=== PATIENT | female | born 1965 | race Caucasian/White ===

== ENCOUNTER 2018-10-16 11:45 | Emergency (ER) | payer SELFPAY ==
[2018-10-16 11:56] VITALS: BP 178/99; PULSE 116; RESP 16; TEMP 36.8; O2SAT 98
--- NOTE | 2018-10-16 12:13 | ED.GENADUL_ITS ---
Discharge Plan Disposition Patient Disposition: HOME Condition: Good Discharge Details Chief Complaint: GenMedical Clinical Impression: Mild HTN Primary Care Provider: Miguelina Quijano ED Provider: Eyad Forbes Home Meds and New Rx's Prescriptions: New lisinopril 10 mg tablet 10 mg PO DAILY Qty: 60 RF: 0 Discharge Instructions Instructions: Hypertension (ED) Additional Instructions: Please take the medication as directed. Remember this is a temporizing medication. It is very important that you do your very best to lose weight, stop smoking and decrease in your salt intake. If you notice any worsening of your symptoms, or any new symptoms such as swelling of your lips, chronic dry cough, vomiting, diarrhea, fever, chills, shortness of breath, chest pain, numbn ess, weakness, or fainting , please return immediately to the emergency department for reevaluation. Please follow up with your primary care provider as soon as possible for reassessment and reevaluation. As always, it was a pleasure participating in your medical care today. Referrals: Miguelina Quijano, SLEEP TECHNICIAN [Primary Care Provider] - Medical Decision Making This is a pleasant 53-year-old female who presents for evaluation of hypertension. She has been measuring her blood pressure at home and is noticed it being elevated slowly for the last 3 weeks. She has an appointment with her PCP but it is not a month, so she came in for assessment. She denies any other complaints whatsoever of chest pain, shortness of breath, headache, vision changes, numbness tingling or weakness. Physical exam is inconsistent with stroke. No evidence of significant neurologic cardiac abnormalities secondary to blood pressure. Signs and symptoms appear clinically consistent with hypertension, and inconsistent with hypertensive emergency. I had a long 15 to 20-minute discussion with the patient regarding the importance of exercise, decrease on salt intake, regular exercise, and decrease in smoking. I discussed how blood pressure medication is a temporizing mechanism, and that lifestyle modifications are the most important thing. We will prescribe lisinopril 10 mg daily as an initial antihypertensive agent, do recommend continue close follow- up with her PCP. Discussed red flags for which to return. I have extensively reviewed the treatment plan and discharge instructions with the patient. I have addressed all patient concerns at this time. The patient was made aware of what symptoms to monitor for that would warrant a return to the emergency department. Discussed the plan with the patient, they demonstrate verbal understanding and agreement with our assessment and plan at this time. HPI General Date/Time Provider Initiated Documentation: 10/16/18 11:53 . HPI Narrative: This is a 53-year-old female with no significant past medical history who presents for evaluation of hypertension. Patient states that over the last 3 weeks she has noticed that her blood pressure has slightly consistently been elevated in the 150s to 170s, she is scheduled appointment with her primary care provider but cannot follow-up for a month. She felt that it was best to come here then for further evaluation. She denies any complaints of headache, chest pain, syncope, tearing sensation in her chest, history of adrenal tumors, or other complaints. She states that her only reason for coming in today with several blood pressure assessed. She does state that she feels very nervous because of her elevated blood pressure and what this might entail. She denies any other complaints modifying factors at this time. She does admit to 30 pound weight gain over the last year, regular tobacco use, and a diet heavy in salt. Related Data Home Medications Medication Instructions Recorded Confirmed lisinopril 10 mg PO DAILY #60 tab 10/16/18 Previous Rx's Medication Instructions Recorded lisinopril 10 mg PO DAILY #60 tab 10/16/18 Allergies Allergy/AdvReac Type Severity Reaction Status Date / Time No Known Allergies Allergy Unverified 10/16/18 11:59 General Stated Complaint: GenMedical ANUPAMA: 3 Review of Systems Review of Systems All systems reviewed & are unremarkable except as noted in HPI and below PFSH Social History Smoking/Tobacco Use Status: Current every day Alcohol Intake: never Substance use type: does not use Exam Narrative Exam Narrative: 1.Const: Well-nourished, Well-developed, appearing stated age 2.Eyes: PERRL, no conjunctival injection, and symmetrical lids. 3.ENT: Atraumatic external nose and ears. Moist MM. Neck: Symmetric, trachea midline, No thyromegaly. 4.CVS: +S1/S2, No murmurs or gallops. Peripheral pulses 2+ and equal in all extremities. Brisk capillary refill in all extremities. 5.RESP: Unlabored respiratory effort. Clear to auscultation bilaterally. No wheezes rales or rhonchi 6.GI: Soft, Nontender/Nondistended, No hepatosplenomegaly. No guarding or rebound. 7.MSK: Normocephalic/Atraumatic, Extremities w/o deformity or ttp No cyanosis or clubbing, Normal movement of all extremities 8.Skin: Warm, Dry. No rashes or lesions. 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 Sensation grossly intact, no focal neurologic deficits. 10.Psych: (AAO) x3. Appropriate mood and affect Course Vital Signs Temperature 36.8 C 10/16/18 11:56 Pulse 116 H 10/16/18 11:56 Respiratory Rate 16 10/16/18 11:56 Blood Pressure 178/99 H 10/16/18 11:56 Pulse Oximetry 98 10/16/18 11:56 Temperature 36.8 C 10/16/18 11:56 Temperature Source Skin 10/16/18 11:56 Pulse 116 H 10/16/18 11:56 Respiratory Rate 16 10/16/18 11:56 Respiratory Effort Non-Labored 10/16/18 11:56 Blood Pressure 178/99 H 10/16/18 11:56 Blood Pressure Position Sitting 10/16/18 11:56 Pulse Oximetry 98 10/16/18 11:56 Oxygen Delivery Method Room Air 10/16/18 11:56 Oxygen Flow Rate 0 10/16/18 11:56 Pain Level 0 10/16/18 11:56
[2018-10-16 12:26] VITALS: RESP 16
== END 2018-10-16 12:19 | disposition home or self-care (01) ==
LOC: ER 12:22
PROVIDERS: Emergency Provider Student in an Organized Health Care Education/Training Program; PCP Nurse Practitioner Family
DX: I10 Essential (primary) hypertension (principal); F17.210 Nicotine dependence, cigarettes, uncomplicated
CPT/HCPCS: 99283

== ENCOUNTER 2019-03-05 00:37 | Outpatient (CLI) | payer MEDICAID, SELFPAY ==
--- NOTE | 2019-03-05 12:16 | DI.MAMMO_ITS ---
EXAM: MAMMO SCREENING CLINICAL HISTORY: SCREENING Z12.39 TECHNIQUE: Mammograms were interpreted according to the usual protocol including computer analysis w [employer] CAD system, tomosynthesis and C-view imaging. FINDINGS: The breasts are of moderate density with fairly symmetrical distribution of fibroglandular tissue. Th ere is a fairly well-circumscribed mass projected in the central medial portion left breast on CC vie ws, this was not present on most recent previous mammogram of November 2010. No additional mass seen. No clumped microcalcification identified in either breast. IMPRESSION: Incompletely visualized, probably well-circumscribed 10 millimeter breast mass, likely new since 2010 . CC and MLO spot-compression views and breast ultrasound recommended for further evaluation. Categor y 0. Breast density, category B. BI-RADS Cat 0 - Assessment Incomplete: Need additional imaging evaluation. Breast Density - Category B - Scattered areas of fibroglandular density.
== END 2019-03-05 00:57 ==
PROVIDERS: PCP Nurse Practitioner Family; Visit Provider Nurse Practitioner Family
DX: Z12.31 Encounter for screening mammogram for malignant neoplasm of breast (principal); R92.8 Other abnormal and inconclusive findings on diagnostic imaging of breast; N63.20 Unspecified lump in the left breast, unspecified quadrant
CPT/HCPCS: 77063; 77067

== ENCOUNTER 2019-03-07 01:36 | Outpatient (CLI) | payer MEDICAID, SELFPAY ==
--- NOTE | 2019-03-07 10:17 | DI.MAMMO_ITS ---
EXAM: MG MAMMO SCREEN CALL BACK UNI AND LEFT BREAST ULTRASOUND CLINICAL HISTORY: F/U MAMMO, WELL CIRCUMSCRIBED MASS. TECHNIQUE: Craniocaudal and mediolateral oblique Full Field Digital Mammography views of the left br east with Computer Aided Diagnosis followed by Tomosynthesis and left breast ultrasound. COMPARISON: US BREAST LT LIMITED from 03/07/2019 FINDINGS: Mammography/Tomosynthesis: Masses/Architectural Distortion: There are several well-circumscribed, round lesions seen in the uppe r inner quadrant of the left breast. No areas of architectural distortion are seen. Microcalcifictions: No suspicious pleomorphic-type are seen. Skin Thickening/Nipple Retraction: None. Left breast US: Echotexture: Normal appearance of the glandular tissue. Shadowing: No suspicious foci. Cyst: Simple cysts are present in the upper inner quadrant of the left breast. There does appear to be a cluster of small cysts noted at the 9 o'clock position of the left breast 2 centimeters from the nipple. Abnormal blood flow is appreciated. Solid lesions: None seen. Ductal dilation: None. IMPRESSION: 1. No evidence of malignancy is noted. 2. A six-month follow-up left breast ultrasound and mammogram are recommended for re-evaluation. BI-RADS Cat 3 - 6 month - Probably Benign Finding: Recommend follow-up mammography in 6 months Breast Density - Category B - Scattered areas of fibroglandular density Findings were discussed with the patient on the date of the examination. A negative radiographic report should not delay biopsy if a dominant or clinically suspicious mass is present. Up to ten percent of cancers are not identified on mammography. A negative report may reinforce clinical impression. Adenosis and dense breasts may obscure an underlying neoplasm. False positive reports average 6 to 10%. Patient will receive a letter notifying them of these results.
== END 2019-03-07 01:56 ==
PROVIDERS: PCP Nurse Practitioner Family; Visit Provider Nurse Practitioner Family
DX: Z12.31 Encounter for screening mammogram for malignant neoplasm of breast (principal); R92.8 Other abnormal and inconclusive findings on diagnostic imaging of breast; N63.22 Unspecified lump in the left breast, upper inner quadrant; N60.12 Diffuse cystic mastopathy of left breast
CPT/HCPCS: 76642; 77063; 77067

== ENCOUNTER 2019-07-19 10:09 | Outpatient (REF) | payer SELFPAY ==
[2019-07-19 15:28] LABS: CREATININE 0.93 mg/dL (0.55-1.02); Potassium 4.6 mmol/L (3.5-5.1)
== END 2019-07-19 10:29 ==
LOC: NCHCN 10:09
PROVIDERS: PCP Nurse Practitioner Family; Visit Provider Nurse Practitioner Family
DX: I10 Essential (primary) hypertension (principal)
CPT/HCPCS: 82565; 84132

== ENCOUNTER 2019-09-09 00:53 | Outpatient (CLI) | payer MEDICAID, SELFPAY ==
--- NOTE | 2019-09-09 13:56 | DI.MAMMO_ITS ---
EXAM: MG MAMMO DIAGNOSTIC UNI CLINICAL HISTORY: DIAGNOSTIC, 6 MONTH FOLLOW UP, R92.8 TECHNIQUE: Mammograms were interpreted according to the usual protocol including computer analysis w [employer] CAD system, tomosynthesis and 2D or C-view imaging. COMPARISON: 2010 through 05 March 2019. FINDINGS: This is a six-month follow-up for an area nodularity left breast. The left breast is composed of sc attered fibroglandular densities, breast density category B. has been no change in the circumscribed nodule in the upper inner quadrant of the left breast. No new or suspicious findings are seen. IMPRESSION: BI-RADS Category 3 - 6 month - Probably Benign Finding: Recommend follow-up mammography in 6 months a t which time the patient is due for screening of the right breast. Breast Density - Category B - Scattered areas of fibroglandular density The patient will receive a letter notifying them of these results.
== END 2019-09-09 01:13 ==
PROVIDERS: PCP Nurse Practitioner Family; Visit Provider Nurse Practitioner Family
DX: R92.2 Inconclusive mammogram (principal); N63.22 Unspecified lump in the left breast, upper inner quadrant; Z12.39 Encounter for other screening for malignant neoplasm of breast
CPT/HCPCS: 77061; 77065; G0279

== ENCOUNTER 2019-10-11 10:50 | Outpatient (REF) | payer MEDICAID, SELFPAY ==
[2019-10-11 18:54] LABS: Potassium 4.1 mmol/L (3.5-5.1); TSH (W/Ref FT4) 0.74 uIU/mL (0.36-3.74)
== END 2019-10-11 11:10 ==
LOC: NCHCN 10:50
PROVIDERS: PCP Nurse Practitioner Family; Visit Provider Nurse Practitioner Family
DX: R53.83 Other fatigue (principal); I10 Essential (primary) hypertension
CPT/HCPCS: 84132; 84443

== ENCOUNTER 2021-10-25 02:36 | Outpatient (CLI) | payer SELFPAY ==
--- NOTE | 2021-10-25 | DI.MAMMO_ITS ---
Exam(s) MAMMO SCREENING EXAM: MAMMO SCREENING CLINICAL HISTORY: SCREENING, HX ABNL MAMMO, Z87.898. TECHNIQUE: Bilateral full field digital CC and MLO mammographic images were obtained with 3D tomosyn thesis and utilizing computer aided detection (CAD). COMPARISON: Prior mammograms were reviewed, the most recent being 2019. FINDINGS: The fibroglandular tissue pattern is moderately dense. Medial aspect of the left breast there is a well-defined oval nodule measuring 9 by 7 millimeters, lo cated approximately 8 cm in from the nipple on the CC view. This more prominent than on prior study. Few other smaller nodular densities are seen approximately 12 o'clock position as well as laterally . In the opposite-right breast there are cluster nodular densities noted laterally, approximately 9 cm in from the nipple. In addition, on the MLO view there is an asymmetric density in the right breast located 8 cm in from the nipple. Spot compression views and ultrasound recommended. There are no malignant-appearing microcalcification in either breast. There is no significant architectural distortion nor skin thickening-retraction. IMPRESSION: Asymmetric densities bilaterally. Spot compression views and bilateral complete breast ultrasound re commended. BI-RADS Category 0 - Assessment Incomplete: Need additional imaging evaluation Breast Density - Category C - Heterogeneously dense Breast density Category C or D implies that the patient has dense breast tissue. Dense breast tissue can make it harder to find cancer on a mammogram. Dense breast tissue is also associated with an incr eased risk of breast cancer. This information about the result of the mammogram report was provided to the patient to raise their awareness. Use this report when you speak with the patient about their risks for breast cancer, which includes their family history. At that time, you may recommend additional screening tests (Ultrasoun d or MRI) as these tests may add significant information. A negative radiographic report should not delay biopsy if a dominant or clinically suspicious mass is present. Up to ten percent of cancers are not identified on mammography. A negative report may reinforce clinical impression. Adenosis and dense breasts may obscure an underlying neoplasm. False positive reports average 6 to 10%. Patient will receive a letter notifying them of these results.
== END 2021-10-25 02:56 ==
PROVIDERS: PCP Nurse Practitioner Family; Visit Provider Nurse Practitioner Family
DX: Z12.31 Encounter for screening mammogram for malignant neoplasm of breast (principal); Z87.898 Personal history of other specified conditions
CPT/HCPCS: 77063; 77067

== ENCOUNTER 2021-11-04 03:17 | Outpatient (CLI) | payer SELFPAY ==
--- NOTE | 2021-11-04 14:00 | DI.US_ITS ---
Exam(s) US BREAST RT LIMITED US BREAST LT LIMITED MG MAMMO SCREEN CALL BACK BI EXAM: MG MAMMO SCREEN CALL BACK BI CLINICAL HISTORY: F/U ABNL MAMMO, BILAT NODULAR DENSITIES. TECHNIQUE: Spot compression digital Mammography views of the bothbreasts with Tomosynthesis followe d by bilateral breast ultrasound. COMPARISON: US BILATERAL BREAST US from 12/08/2010 MG DIAGNOSTIC BILAT MAMMO W/CAD from 12/08/2010 MG MG MAMMO SCREENING from 03/05/2019 MG MG MAMMO SCREEN CALL BACK UNI from 03/07/2019 US US BREAST LT LIMITED from 03/07/2019 MG MG MAMMO DIAGNOSTIC UNI from 09/09/2019 MG MG MAMMO SCREENING from 10/25/2021 US US BREAST RT LIMITED from 11/04/2021 US US BREAST LT LIMITED from 11/04/2021 FINDINGS: Left BREAST: Mammography/Tomosynthesis: Masses/Architectural Distortion: There is a smoothly marginated ovoid nodule with a central fatty hil um, consistent with an intramammary lymph node. Microcalcifictions: No suspicious pleomorphic-type are seen. Skin Thickening/Nipple Retraction: None. Left breast US: Echotexture: Normal appearance of the glandular tissue. Shadowing: No suspicious foci. Cyst: None. Solid lesions: Smoothly marginated, ovoid hypoechoic nodule with fatty hilum 10 o'clock position 7 cm from the nipple, consistent with intramammary lymph node. Ductal dilation: None. Right BREAST: Mammography/Tomosynthesis: Masses/Architectural Distortion: Questioned asymmetric density in the superior breast on the MLO view does not persist on the spot compression views. Several small smoothly marginated lymph nodes are n oted in the upper outer quadrant. Microcalcifictions: No suspicious pleomorphic-type are seen. Skin Thickening/Nipple Retraction: None. Right breast ultrasound: Echotexture: Normal appearance of the glandular tissue. Shadowing: No suspicious foci. Cyst: None. Solid lesions: A 5 x 3 x 6 millimeter intramammary lymph node is noted in the 9 o'clock position 5 cm from the nipple. Ductal dilation: None. IMPRESSION: 1. Right breast: No evidence of malignancy is noted. 2. Left breast: No evidence of malignancy is noted. 3. Unless there is more urgent need, follow-up screening mammography is recommended, as per [employer] guidelines. 4. The findings were discussed with the patient on the date of the examination. BI-RADS Category 2 - Benign Findings Breast Density - Category C - Heterogeneously dense A mammogram that demonstrates density of C or D indicates the patient's breast tissue is dense. Dense breast tissue is very common and is not abnormal, but dense breast tissue can make it harder to find cancer on a mammogram. Also, dense breast tissue may increase their breast cancer risk. This informa tion about the result of the mammogram report was provided to the patient to raise their awareness. U se this report when you speak with the patient about their risks for breast cancer, which includes th eir family history. At that time, you may recommend for more screening tests (Ultrasound or MRI) as t hey might be useful based on their risk. A negative radiographic report should not delay biopsy if a dominant or clinically suspicious mass is present. Up to ten percent of cancers are not identified on mammography. A negative report may reinforce clinical impression. Adenosis and dense breasts may obscure an underlying neoplasm. False positive reports average 6 to 10%. Patient will receive a letter notifying them of these results.
== END 2021-11-04 03:37 ==
LOC: DI 03:18
PROVIDERS: PCP Nurse Practitioner Family; Visit Provider Nurse Practitioner Family
DX: R92.8 Other abnormal and inconclusive findings on diagnostic imaging of breast (principal)
CPT/HCPCS: 76642; 77063; 77067

== ENCOUNTER 2022-11-11 11:01 | Outpatient (REF) | payer SELFPAY ==
[2022-11-11 14:44] LABS: HCT 44.5 % (36.0-46.0); MCH 31.1 pg (27.0-33.0); MCHC 33.7 % (32.0-36.0); MCV 92 fL (80-95); MPV 9.8 fL (8.0-11.0); Platelet Count 284 10^3/uL (130-400); RBC 4.83 10^6/uL (3.93-5.22); RDW 12.1 % (11.7-14.6); RDW-SD 41.2 fL; WBC 11.29 10^3/uL (4.4-10.8)
[2022-11-11 15:01] LABS: Hemoglobin A1C 8.4 % (<5.7)
[2022-11-11 15:15] LABS: Anion Gap 9.7 mmol/L (3-11); BUN 11 mg/dL (7-18); CO2 26.3 mmol/L (21.0-32.0); CREATININE 0.8 mg/dL (0.55-1.02); Calcium 9.3 mg/dL (8.5-10.1); Calculated LDL 135 mg/dL (<100); Chloride 101 mmol/L (98-107); Cholesterol 222 mg/dL (<200); Estimated GFR 85.89 (mL/min/1.73m2); Glucose 166 mg/dL (74-106); HDL Cholesterol 50 mg/dL (40-60); Potassium 4.2 mmol/L (3.5-5.1); Sodium 137 mmol/L (136-145); TSH (W/Ref FT4) 0.91 uIU/mL (0.36-3.74); Triglyceride 186 mg/dL (<150)
== END 2022-11-11 11:02 | disposition home or self-care (01) ==
LOC: NCHCN 11:01
PROVIDERS: PCP Nurse Practitioner Family; Visit Provider Nurse Practitioner Family
DX: I10 Essential (primary) hypertension (principal); R73.09 Other abnormal glucose; R79.89 Other specified abnormal findings of blood chemistry
CPT/HCPCS: 80048; 80061; 85027; 83036; 84443

== ENCOUNTER 2023-08-31 11:00 | Outpatient (REF) | payer SELFPAY ==
[2023-08-31 17:49] LABS: Anion Gap 7.8 mmol/L (3-11); BUN 15 mg/dL (7-18); CO2 30.2 mmol/L (21.0-32.0); Calcium 9.3 mg/dL (8.5-10.1); Chloride 103 mmol/L (98-107); Glucose 110 mg/dL (74-106); Potassium 4.4 mmol/L (3.5-5.1); Sodium 141 mmol/L (136-145)
[2023-08-31 18:32] LABS: Hemoglobin A1C 5.9 % (<5.7)
== END 2023-08-31 11:01 | disposition home or self-care (01) ==
LOC: NCHCN 11:00
PROVIDERS: Visit Provider Nurse Practitioner Family
DX: I10 Essential (primary) hypertension (principal); E11.9 Type 2 diabetes mellitus without complications
CPT/HCPCS: 80048; 83036

== ENCOUNTER 2023-11-08 01:59 | Outpatient (CLI) | payer SELFPAY ==
--- NOTE | 2023-11-08 | DI.MAMMO_ITS ---
Exam(s) MAMMO SCREENING EXAM: MAMMO SCREENING CLINICAL HISTORY: Screening, Z12.39 TECHNIQUE: Bilateral full field digital CC and MLO mammographic images were obtained with 3D tomosyn thesis and utilizing computer aided detection (CAD). COMPARISON: Available for comparison. FINDINGS: Masses/Architectural Distortion: There again seen several bilateral breast nodules. No suspicious no dules or areas of architectural distortion are seen. Microcalcifications: No suspicious pleomorphic-type are seen. Skin Thickening/Nipple Retraction: None. IMPRESSION: 1. No significant interval change with no specific features of malignancy noted. 2. Unless there is more urgent need, screening mammography is recommended, as per [employer] guidelines. BI-RADS Category 2 - Benign Findings Breast Density - Category C - Heterogeneously dense Breast density category C or D implies that the patient has dense breast tissue. Dense breast tissue is very common and is not abnormal but dense breast tissue can make it harder to find cancer on a ma mmogram. Also, dense breast tissue may increase their breast cancer risk. This information about the result of the mammogram report was provided to the patient to raise their awareness. Use this report when you speak with the patient about their risks for breast cancer, which includes their family hist ory. At that time, you may recommend for more screening tests (Ultrasound or MRI) as they might be us eful based on their risk. A negative radiographic report should not delay biopsy if a dominant or clinically suspicious mass is present. Up to ten percent of cancers are not identified on mammography. A negative report may reinforce clinical impression. Adenosis and dense breasts may obscure an underlying neoplasm. False positive reports average 6 to 10%. Patient will receive a letter notifying them of these results.
== END 2023-11-08 02:19 ==
LOC: DI 01:59
PROVIDERS: Visit Provider Nurse Practitioner Family
DX: Z12.31 Encounter for screening mammogram for malignant neoplasm of breast (principal)
CPT/HCPCS: 77063; 77067